=== PATIENT | female | born 1935 | race Caucasian/White ===

== ENCOUNTER 2020-08-05 15:01 | Inpatient (IN) ==
[2020-08-05] MEDS ORDERED: Diclofenac Sodium [Voltaren] TP PRN (21:37)
[2020-08-06 06:56] LABS: Basophils % 0.4 %; Eosinophils # 0.3 K/mcL (0.0-0.6); Eosinophils % 5.9 %; Hematocrit 40.2 % (35.3-44.9); Hemoglobin 13.9 g/dL (11.5-15.4); Immature Granulocytes % 0.2 % (0-4); Lymphocytes # 1.4 K/mcL (0.6-4.6); Mean Corpuscular HGB Conc 34.6 g/dL (31.6-35.5); Mean Corpuscular Hemoglobin 31.4 pg (28.0-33.3); Mean Corpuscular Volume 90.7 fL (83.0-100.0); Mean Platelet Volume 9.7 fL (9.4-12.4); Monocytes # 0.6 K/mcL (0.0-1.3); Monocytes % 10.1 %; Neutrophils # 3.2 K/mcL (1.6-8.9); Platelet Count 165 K/mcL (140-400); Red Blood Count 4.43 M/mcL (3.82-4.97); Red Cell Distribution Width 13.4 % (11.5-14.5); Segmented Neutrophils % 58.4 %; White Blood Count 5.5 K/mcL (4.3-11.1)
[2020-08-06 07:15] LABS: BUN/Creatinine Ratio 25 (6-26); Blood Urea Nitrogen 15 mg/dL (8-23); Calcium 8.5 mg/dL (8.6-10.3); Carbon Dioxide 24 mEq/L (23-29); Chloride 105 mEq/L (98-107); Glucose 86 mg/dL (70-105); Osmolality,Calculated 290 (280-300); Potassium 3.5 mEq/L (3.5-5.1); Sodium 140 mEq/L (136-145); eGFR For African Americans > 60 (> 60); eGFR For Non-African Americans > 60 (> 60)
[2020-08-06] MEDS ORDERED: Hydrocortisone 10 MG TABLET PO SCH (09:00)
[2020-08-06] MEDS ORDERED: Ibuprofen 200 MG TABLET PO SCH (09:00)
[2020-08-06] MEDS: Hydrocortisone 10 MG TABLET PO SCH (09:30)
[2020-08-06] MEDS: Ibuprofen 400 MG TABLET PO SCH ×2 (09:30→20:58)
[2020-08-06] MEDS: Multivit/Ca/Min/Fe/FA 1 TAB TABLET PO SCH (09:30)
[2020-08-06] MEDS: Cholecalciferol (D-3) 1,000 UNIT (25MCG) TABLET PO SCH (09:31)
[2020-08-06] MEDS: carvediloL 6.25 MG TABLET PO SCH (09:31)
[2020-08-06] MEDS: Budesonide/Formoterol 160/4.5 1 PUFF INH IH SCH ×2 (09:46→22:31)
[2020-08-07] MEDS: *HR* Enoxaparin 40 MG/0.4 ML SYRINGE SQ SCH (06:10)
[2020-08-07] MEDS: Ibuprofen 400 MG TABLET PO SCH ×2 (08:25→20:30)
[2020-08-07] MEDS: carvediloL 6.25 MG TABLET PO SCH (08:25)
[2020-08-07] MEDS: Hydrocortisone 10 MG TABLET PO SCH (08:25)
[2020-08-07] MEDS: Cholecalciferol (D-3) 1,000 UNIT (25MCG) TABLET PO SCH (08:25)
[2020-08-07] MEDS: Multivit/Ca/Min/Fe/FA 1 TAB TABLET PO SCH (08:25)
[2020-08-07] MEDS: Budesonide/Formoterol 160/4.5 1 PUFF INH IH SCH ×2 (11:36→21:30)
[2020-08-08] MEDS: *HR* Enoxaparin 40 MG/0.4 ML SYRINGE SQ SCH (05:50)
[2020-08-08] MEDS: Hydrocortisone 10 MG TABLET PO SCH (08:18)
[2020-08-08] MEDS: carvediloL 6.25 MG TABLET PO SCH (08:18)
[2020-08-08] MEDS: Cholecalciferol (D-3) 1,000 UNIT (25MCG) TABLET PO SCH (08:19)
[2020-08-08] MEDS: Multivit/Ca/Min/Fe/FA 1 TAB TABLET PO SCH (08:19)
[2020-08-08] MEDS: Ibuprofen 400 MG TABLET PO SCH ×2 (08:19→20:25)
[2020-08-08] MEDS: Budesonide/Formoterol 160/4.5 1 PUFF INH IH SCH ×2 (10:50→21:20)
[2020-08-09] MEDS: *HR* Enoxaparin 40 MG/0.4 ML SYRINGE SQ SCH (05:40)
[2020-08-09] MEDS: Budesonide/Formoterol 160/4.5 1 PUFF INH IH SCH ×2 (09:20→22:59)
[2020-08-09] MEDS: Multivit/Ca/Min/Fe/FA 1 TAB TABLET PO SCH (09:38)
[2020-08-09] MEDS: Hydrocortisone 10 MG TABLET PO SCH (09:38)
[2020-08-09] MEDS: Cholecalciferol (D-3) 1,000 UNIT (25MCG) TABLET PO SCH (09:38)
[2020-08-09] MEDS: carvediloL 6.25 MG TABLET PO SCH (09:38)
[2020-08-09] MEDS: Ibuprofen 400 MG TABLET PO SCH ×2 (09:39→20:33)
[2020-08-10] MEDS: *HR* Enoxaparin 40 MG/0.4 ML SYRINGE SQ SCH (06:18)
[2020-08-10] MEDS: Budesonide/Formoterol 160/4.5 1 PUFF INH IH SCH ×2 (08:53→22:58)
[2020-08-10] MEDS: haloperidoL 1 MG TABLET PO PRN (09:19)
[2020-08-10] MEDS: Hydrocortisone 10 MG TABLET PO SCH (09:19)
[2020-08-10] MEDS: Cholecalciferol (D-3) 1,000 UNIT (25MCG) TABLET PO SCH (09:20)
[2020-08-10] MEDS: carvediloL 6.25 MG TABLET PO SCH ×2 (09:20→17:44)
[2020-08-10] MEDS: Multivit/Ca/Min/Fe/FA 1 TAB TABLET PO SCH (09:20)
[2020-08-10] MEDS: Ibuprofen 400 MG TABLET PO SCH ×2 (09:20→22:42)
[2020-08-11] MEDS: *HR* Enoxaparin 40 MG/0.4 ML SYRINGE SQ SCH (05:41)
[2020-08-11 07:40] LABS: BUN/Creatinine Ratio 20 (6-26); Blood Urea Nitrogen 15 mg/dL (8-23); Calcium 8.1 mg/dL (8.6-10.3); Carbon Dioxide 29 mEq/L (23-29); Chloride 104 mEq/L (98-107); Glucose 79 mg/dL (70-105); Osmolality,Calculated 288 (280-300); Potassium 3.8 mEq/L (3.5-5.1); Sodium 139 mEq/L (136-145); eGFR For African Americans > 60 (> 60); eGFR For Non-African Americans > 60 (> 60)
[2020-08-11] MEDS: Ibuprofen 400 MG TABLET PO SCH ×2 (08:46→21:25)
[2020-08-11] MEDS: carvediloL 6.25 MG TABLET PO SCH ×2 (08:46→17:12)
[2020-08-11] MEDS: Multivit/Ca/Min/Fe/FA 1 TAB TABLET PO SCH (08:46)
[2020-08-11] MEDS: Cholecalciferol (D-3) 1,000 UNIT (25MCG) TABLET PO SCH (08:47)
[2020-08-11] MEDS: Hydrocortisone 10 MG TABLET PO SCH (08:47)
[2020-08-11] MEDS: Budesonide/Formoterol 160/4.5 1 PUFF INH IH SCH ×2 (09:18→22:59)
[2020-08-12] MEDS: *HR* Enoxaparin 40 MG/0.4 ML SYRINGE SQ SCH (05:58)
[2020-08-12] MEDS: Hydrocortisone 10 MG TABLET PO SCH (08:06)
[2020-08-12] MEDS: carvediloL 6.25 MG TABLET PO SCH ×2 (08:07→16:54)
[2020-08-12] MEDS: Multivit/Ca/Min/Fe/FA 1 TAB TABLET PO SCH (08:07)
[2020-08-12] MEDS: Ibuprofen 400 MG TABLET PO SCH ×2 (08:07→21:12)
[2020-08-12] MEDS: Cholecalciferol (D-3) 1,000 UNIT (25MCG) TABLET PO SCH (08:07)
[2020-08-12] MEDS ORDERED: Ondansetron ODT 4 MG TAB.RAPDIS SL PRN (09:29)
[2020-08-12] MEDS: Budesonide/Formoterol 160/4.5 1 PUFF INH IH SCH ×2 (11:25→21:42)
[2020-08-12] MEDS: Benzonatate 100 MG CAPSULE PO PRN (21:13)
[2020-08-13] MEDS: *HR* Enoxaparin 40 MG/0.4 ML SYRINGE SQ SCH (06:21)
[2020-08-13] MEDS: haloperidoL 1 MG TABLET PO PRN (09:08)
[2020-08-13] MEDS: Hydrocortisone 10 MG TABLET PO SCH (09:08)
[2020-08-13] MEDS: Multivit/Ca/Min/Fe/FA 1 TAB TABLET PO SCH (09:08)
[2020-08-13] MEDS: Ibuprofen 400 MG TABLET PO SCH ×2 (09:08→20:29)
[2020-08-13] MEDS: Cholecalciferol (D-3) 1,000 UNIT (25MCG) TABLET PO SCH (09:09)
[2020-08-13] MEDS: carvediloL 6.25 MG TABLET PO SCH ×2 (09:09→16:27)
[2020-08-13] MEDS: Budesonide/Formoterol 160/4.5 1 PUFF INH IH SCH ×2 (11:57→22:30)
[2020-08-13] MEDS: Benzonatate 100 MG CAPSULE PO PRN (20:29)
[2020-08-14] MEDS: haloperidoL 1 MG TABLET PO PRN (01:53)
[2020-08-14] MEDS: *HR* Enoxaparin 40 MG/0.4 ML SYRINGE SQ SCH (06:10)
[2020-08-14] MEDS: Hydrocortisone 10 MG TABLET PO SCH (08:15)
[2020-08-14] MEDS: Ibuprofen 400 MG TABLET PO SCH ×2 (08:15→20:13)
[2020-08-14] MEDS: carvediloL 6.25 MG TABLET PO SCH ×2 (08:15→17:03)
[2020-08-14] MEDS: Cholecalciferol (D-3) 1,000 UNIT (25MCG) TABLET PO SCH (08:15)
[2020-08-14] MEDS: Multivit/Ca/Min/Fe/FA 1 TAB TABLET PO SCH (08:16)
[2020-08-14] MEDS: Budesonide/Formoterol 160/4.5 1 PUFF INH IH SCH ×3 (10:18→22:02)
[2020-08-14] MEDS: Benzonatate 100 MG CAPSULE PO PRN (20:13)
[2020-08-15] MEDS: *HR* Enoxaparin 40 MG/0.4 ML SYRINGE SQ SCH (05:16)
[2020-08-15] MEDS: Multivit/Ca/Min/Fe/FA 1 TAB TABLET PO SCH (08:12)
[2020-08-15] MEDS: Hydrocortisone 10 MG TABLET PO SCH (08:12)
[2020-08-15] MEDS: Cholecalciferol (D-3) 1,000 UNIT (25MCG) TABLET PO SCH (08:12)
[2020-08-15] MEDS: Ibuprofen 400 MG TABLET PO SCH ×2 (08:12→20:44)
[2020-08-15] MEDS: carvediloL 6.25 MG TABLET PO SCH ×2 (08:12→17:06)
[2020-08-15] MEDS: Budesonide/Formoterol 160/4.5 1 PUFF INH IH SCH ×2 (09:04→22:31)
[2020-08-16] MEDS: *HR* Enoxaparin 40 MG/0.4 ML SYRINGE SQ SCH (05:20)
[2020-08-16] MEDS: Cholecalciferol (D-3) 1,000 UNIT (25MCG) TABLET PO SCH (08:45)
[2020-08-16] MEDS: carvediloL 6.25 MG TABLET PO SCH ×2 (08:45→17:09)
[2020-08-16] MEDS: Ibuprofen 400 MG TABLET PO SCH ×2 (08:45→20:19)
[2020-08-16] MEDS: Multivit/Ca/Min/Fe/FA 1 TAB TABLET PO SCH (08:45)
[2020-08-16] MEDS: Hydrocortisone 10 MG TABLET PO SCH (08:46)
[2020-08-16] MEDS: Budesonide/Formoterol 160/4.5 1 PUFF INH IH SCH ×2 (11:34→21:50)
[2020-08-17] MEDS: *HR* Enoxaparin 40 MG/0.4 ML SYRINGE SQ SCH (05:23)
[2020-08-17] MEDS: carvediloL 6.25 MG TABLET PO SCH ×3 (08:28→17:24)
[2020-08-17] MEDS: Multivit/Ca/Min/Fe/FA 1 TAB TABLET PO SCH (08:28)
[2020-08-17] MEDS: Hydrocortisone 10 MG TABLET PO SCH (08:28)
[2020-08-17] MEDS: Ibuprofen 400 MG TABLET PO SCH ×2 (08:28→20:35)
[2020-08-17] MEDS: Cholecalciferol (D-3) 1,000 UNIT (25MCG) TABLET PO SCH (08:28)
[2020-08-17] MEDS: Budesonide/Formoterol 160/4.5 1 PUFF INH IH SCH ×2 (11:03→21:11)
[2020-08-18] MEDS: *HR* Enoxaparin 40 MG/0.4 ML SYRINGE SQ SCH (05:42)
[2020-08-18] MEDS: Hydrocortisone 10 MG TABLET PO SCH (08:12)
[2020-08-18] MEDS: Ibuprofen 400 MG TABLET PO SCH ×2 (08:12→21:19)
[2020-08-18] MEDS: Multivit/Ca/Min/Fe/FA 1 TAB TABLET PO SCH (08:13)
[2020-08-18] MEDS: Cholecalciferol (D-3) 1,000 UNIT (25MCG) TABLET PO SCH (08:13)
[2020-08-18] MEDS: carvediloL 6.25 MG TABLET PO SCH ×2 (08:13→16:25)
[2020-08-18 08:38] LABS: Basophils % 0.2 %; Eosinophils # 0.2 K/mcL (0.0-0.6); Eosinophils % 3.9 %; Hematocrit 33.8 % (35.3-44.9); Hemoglobin 11.6 g/dL (11.5-15.4); Immature Granulocytes % 0.4 % (0-4); Lymphocytes % 21.6 %; Mean Corpuscular HGB Conc 34.3 g/dL (31.6-35.5); Mean Corpuscular Hemoglobin 31.9 pg (28.0-33.3); Mean Corpuscular Volume 92.9 fL (83.0-100.0); Mean Platelet Volume 9.6 fL (9.4-12.4); Monocytes # 0.4 K/mcL (0.0-1.3); Monocytes % 8.9 %; Neutrophils # 3.1 K/mcL (1.6-8.9); Platelet Count 215 K/mcL (140-400); Red Blood Count 3.64 M/mcL (3.82-4.97); Red Cell Distribution Width 14.1 % (11.5-14.5); White Blood Count 4.8 K/mcL (4.3-11.1)
[2020-08-18 08:55] LABS: BUN/Creatinine Ratio 21 (6-26); Blood Urea Nitrogen 16 mg/dL (8-23); Carbon Dioxide 29 mEq/L (23-29); Chloride 104 mEq/L (98-107); Glucose 100 mg/dL (70-105); Osmolality,Calculated 291 (280-300); Potassium 3.5 mEq/L (3.5-5.1); Sodium 140 mEq/L (136-145); eGFR For African Americans > 60 (> 60); eGFR For Non-African Americans > 60 (> 60)
[2020-08-18] MEDS: Budesonide/Formoterol 160/4.5 1 PUFF INH IH SCH ×2 (11:31→20:56)
[2020-08-18 13:32] LABS: Adenovirus Not Detected (Not Detect); Coronavirus 229E Not Detected (Not Detect); Coronavirus HKU1 Not Detected (Not Detect); Coronavirus NL63 Not Detected (Not Detect); Coronavirus OC43 Not Detected (Not Detect); Human Metapneumovirus Not Detected (Not Detect); Human Rhinovirus/Enterovirus Not Detected (Not Detect); Influenza A Subtype 2009 H1 Not Detected (Not Detect); Influenza B Not Detected (Not Detect); Parainfluenza Virus 1 Not Detected (Not Detect); Parainfluenza Virus 2 Not Detected (Not Detect); Parainfluenza Virus 3 Not Detected (Not Detect); Parainfluenza Virus 4 Not Detected (Not Detect)
[2020-08-18 13:33] LABS: Bordetella Pertussis Not Detected (Not Detect); Chlamydophila pneumoniae Not Detected (Not Detect); Mycoplasma pneumoniae Not Detected (Not Detect); Respiratory Syncytial Virus Not Detected (Not Detect)
[2020-08-19] MEDS: haloperidoL 1 MG TABLET PO PRN ×2 (00:51→22:07)
[2020-08-19] MEDS: *HR* Enoxaparin 40 MG/0.4 ML SYRINGE SQ SCH (06:00)
[2020-08-19] MEDS: Hydrocortisone 10 MG TABLET PO SCH (08:56)
[2020-08-19] MEDS: Multivit/Ca/Min/Fe/FA 1 TAB TABLET PO SCH (08:57)
[2020-08-19] MEDS: carvediloL 6.25 MG TABLET PO SCH ×2 (08:57→16:57)
[2020-08-19] MEDS: Ibuprofen 400 MG TABLET PO SCH ×2 (08:57→21:00)
[2020-08-19] MEDS: Cholecalciferol (D-3) 1,000 UNIT (25MCG) TABLET PO SCH (08:58)
[2020-08-19] MEDS: Budesonide/Formoterol 160/4.5 1 PUFF INH IH SCH ×2 (08:59→23:01)
[2020-08-19 10:51] LABS: Bilirubin,Urine Negative (Negative); Blood,Urine Trace-intact (Negative); Clarity,Urine Clear (Clear); Color,Urine Yellow (Yellow); Glucose,Urine (UA) Normal (Normal); Ketones,Urine Trace mg/dL (Negative); Leukocyte Esterase,Urine Negative (Negative); Nitrite,Urine Negative (Negative); PH,Urine 7.5 pH Units (5.0-8.0); Protein,Urine Negative (Neg-Trace); Urobilinogen,Urine Normal (Normal)
[2020-08-19 10:58] LABS: RBC,Urine 0-3 per hpf (0-3); Squamous Epithelial Cell,Urine Few per hpf (None-Few); WBC,Urine 0-3 per hpf (0-3)
[2020-08-19] MEDS: Benzonatate 100 MG CAPSULE PO PRN (21:00)
[2020-08-20] MEDS: *HR* Enoxaparin 40 MG/0.4 ML SYRINGE SQ SCH (06:24)
[2020-08-20] MEDS: Budesonide/Formoterol 160/4.5 1 PUFF INH IH SCH ×2 (08:50→22:31)
[2020-08-20] MEDS: Cholecalciferol (D-3) 1,000 UNIT (25MCG) TABLET PO SCH (09:11)
[2020-08-20] MEDS: Multivit/Ca/Min/Fe/FA 1 TAB TABLET PO SCH (09:11)
[2020-08-20] MEDS: Ibuprofen 400 MG TABLET PO SCH ×2 (09:11→20:40)
[2020-08-20] MEDS: Hydrocortisone 10 MG TABLET PO SCH ×2 (09:12→09:13)
[2020-08-20] MEDS: carvediloL 6.25 MG TABLET PO SCH ×2 (09:12→16:23)
[2020-08-21] MEDS: *HR* Enoxaparin 40 MG/0.4 ML SYRINGE SQ SCH (06:37)
[2020-08-21] MEDS: Hydrocortisone 10 MG TABLET PO SCH (07:53)
[2020-08-21] MEDS: carvediloL 6.25 MG TABLET PO SCH ×2 (07:54→16:58)
[2020-08-21] MEDS: Cholecalciferol (D-3) 1,000 UNIT (25MCG) TABLET PO SCH (07:54)
[2020-08-21] MEDS: Ibuprofen 400 MG TABLET PO SCH ×2 (07:54→19:58)
[2020-08-21] MEDS: Multivit/Ca/Min/Fe/FA 1 TAB TABLET PO SCH (07:54)
[2020-08-21] MEDS: Budesonide/Formoterol 160/4.5 1 PUFF INH IH SCH ×3 (11:09→21:39)
[2020-08-21] MEDS ORDERED: hydrALAZINE 25 MG TABLET PO PRN (16:33)
[2020-08-22] MEDS: *HR* Enoxaparin 40 MG/0.4 ML SYRINGE SQ SCH (05:37)
[2020-08-22] MEDS: Hydrocortisone 10 MG TABLET PO SCH (08:25)
[2020-08-22] MEDS: Multivit/Ca/Min/Fe/FA 1 TAB TABLET PO SCH (08:26)
[2020-08-22] MEDS: carvediloL 6.25 MG TABLET PO SCH ×2 (08:26→17:00)
[2020-08-22] MEDS: Cholecalciferol (D-3) 1,000 UNIT (25MCG) TABLET PO SCH (08:26)
[2020-08-22] MEDS: Ibuprofen 400 MG TABLET PO SCH ×2 (08:26→19:30)
[2020-08-22] MEDS: Budesonide/Formoterol 160/4.5 1 PUFF INH IH SCH ×2 (09:23→21:02)
[2020-08-23] MEDS: *HR* Enoxaparin 40 MG/0.4 ML SYRINGE SQ SCH (05:06)
[2020-08-23] MEDS: Hydrocortisone 10 MG TABLET PO SCH (08:39)
[2020-08-23] MEDS: Cholecalciferol (D-3) 1,000 UNIT (25MCG) TABLET PO SCH (08:40)
[2020-08-23] MEDS: Ibuprofen 400 MG TABLET PO SCH ×2 (08:40→21:01)
[2020-08-23] MEDS: Multivit/Ca/Min/Fe/FA 1 TAB TABLET PO SCH (08:40)
[2020-08-23] MEDS: carvediloL 6.25 MG TABLET PO SCH ×2 (08:40→17:01)
[2020-08-23] MEDS: Budesonide/Formoterol 160/4.5 1 PUFF INH IH SCH ×2 (10:06→21:08)
[2020-08-23] MEDS: Benzonatate 100 MG CAPSULE PO PRN (17:00)
[2020-08-24] MEDS: *HR* Enoxaparin 40 MG/0.4 ML SYRINGE SQ SCH (06:43)
[2020-08-24] MEDS: Multivit/Ca/Min/Fe/FA 1 TAB TABLET PO SCH (08:15)
[2020-08-24] MEDS: carvediloL 6.25 MG TABLET PO SCH ×2 (08:15→16:23)
[2020-08-24] MEDS: Hydrocortisone 10 MG TABLET PO SCH (08:16)
[2020-08-24] MEDS: Cholecalciferol (D-3) 1,000 UNIT (25MCG) TABLET PO SCH (08:16)
[2020-08-24] MEDS: Ibuprofen 400 MG TABLET PO SCH ×2 (08:16→20:25)
[2020-08-24] MEDS: Budesonide/Formoterol 160/4.5 1 PUFF INH IH SCH ×2 (08:16→21:59)
[2020-08-25] MEDS: *HR* Enoxaparin 40 MG/0.4 ML SYRINGE SQ SCH (05:41)
[2020-08-25] MEDS: Benzonatate 100 MG CAPSULE PO PRN (05:41)
[2020-08-25 07:04] VITALS: BP 132/84
[2020-08-25] MEDS: Multivit/Ca/Min/Fe/FA 1 TAB TABLET PO SCH (08:15)
[2020-08-25] MEDS: carvediloL 6.25 MG TABLET PO SCH (08:15)
[2020-08-25] MEDS: Cholecalciferol (D-3) 1,000 UNIT (25MCG) TABLET PO SCH (08:16)
[2020-08-25] MEDS: Ibuprofen 400 MG TABLET PO SCH (08:16)
[2020-08-25] MEDS: Hydrocortisone 10 MG TABLET PO SCH (08:17)
[2020-08-25] MEDS: Budesonide/Formoterol 160/4.5 1 PUFF INH IH SCH (09:24)
== END 2020-08-25 14:04 | DRG 178 ==
LOC: INPPIK 20:21 → SUATTDRO 20:21 → INPPIK 08-06 12:22
PROVIDERS: ADMIT Internal Medicine; ATTEND Family Medicine